=== PATIENT | male | born 1955 | race Caucasian/White ===

== ENCOUNTER 2016-03-30 18:59 | Emergency (ER) | payer OTHER ==
[~2016-03-30 18:59] MED LIST: COZAAR25 MG PO; COZAAR50 MG PO; FLONASE AL50 MCG/ACT; HYCET1 ML PO; HYDROCHLOROTHIA25 MG PO; LIPITOR20 MG PO; LYRICA100 MG PO; PREVACID30 MG PO; TRAZODONE HCL50 MG PO; WELLBUTRIN SR150 MG PO; ZYRTEC ALLERGY10 MG PO
--- NOTE | 2016-03-30 21:56 | DIAGNOSTIC IMAGING REPORT ---
PROCEDURE: CT HEAD WITHOUT CONTRAST INDICATION: TRAUMA/INJURY TECHNIQUE: Noncontrast axial images with sagittal and coronal reformations. COMPARISON: None. FINDINGS: There is moderate soft tissue injury and hematoma over the left parietal scalp. No evidence of skull fracture. Intracranially, there is a large 4.5 cm arachnoid cyst in the left posterior fossa (versus a normal variant enlarged cisterna magna). Brain and ventricles are otherwise normal. No evidence of an acute process or hemorrhage. Sinuses and mastoids are normal. IMPRESSION: 1. Moderate soft tissue injury and hematoma over the left parietal scalp. 2. There is a large 4.5 cm arachnoid cyst in the posterior fossa (versus normal variant enlarged cisterna magna). 3. Otherwise negative head CT. No evidence of acute process. 4. Findings discussed with Dr. Adams. All CT scans at this facility use dose modulation, iterative reconstruction, and/or weight-based dosing when appropriate to reduce radiation dose to as low as reasonably achievable.
--- NOTE | 2016-03-30 22:03 | DIAGNOSTIC IMAGING REPORT ---
PROCEDURE: CT CERVICAL SPINE W/O CONTRAST INDICATION: TRAUMA/INJURY TECHNIQUE: Noncontrast axial images with sagittal and coronal reformations. COMPARISON: None. FINDINGS: There are moderate to marked degenerative changes of the mid and upper cervical facet joints (left greater right), with reversal of the upper cervical lordosis. The rest of the osseous structures and disc spaces are normal. No evidence of an acute process or fracture. IMPRESSION: 1. Moderate to marked degenerative changes of the mid and upper cervical facet joints with reversal of the upper cervical lordosis. 2. Otherwise negative CT cervical spine. No evidence of an acute process or fracture. 3. Report alert called to the emergency department for Dr. Adams. All CT scans at this facility use dose modulation, iterative reconstruction, and/or weight-based dosing when appropriate to reduce radiation dose to as low as reasonably achievable.
--- NOTE | 2016-03-30 22:26 | ED CLINICAL REPORT ---
Clinical Report - Physicians/Mid Levels [facility] [address] [place] [address] 03/30/2016 19:00 [id number] Time Seen: 21:15 Mar 30 2016. Arrived- By private vehicle. Historian- patient. CPT: ER phys charges level 4 (#[id number]). HISTORY OF PRESENT ILLNESS Chief Complaint: INJURY TO HEAD. Location of injuries- head. The injury occurred just prior to arrival. The patient sustained a blow. Fell. Occurred at home. ( Location of injuries: head. This occurred (1 hours ago). Occurred at home.). The patient complains of moderate pain. The patient sustained a blow to the head. REVIEW OF SYSTEMS No numbness, hearing loss, weakness, loss of vision or difficulty breathing. No bladder dysfunction, laceration or fever. He has had mild nausea. Chronic peripheral neuropathy due to DM. All systems otherwise negative, except as recorded above. PAST HISTORY Hypertension. Hypercholesterolemia. Gastroesophageal Reflux Disease. --19:53 Kaleb Winters RColeman. ADDITIONAL SURGERIES: ABD surgery . Leg surgery . Shoulder Surgery. Medications: TraZODone HCl Oral 50 mg, daily. Atorvastatin Calcium Oral 20 mg, daily. BusPIRone HCl Oral 150mg, daily. Lansoprazole Oral 30 mg, daily. Hydrochlorothiazide Oral 25 mg, daily. Allergies: No Known Drug Allergy. SOCIAL HISTORY Former smoker. Alcohol use. No drug use. ADDITIONAL NOTES The nursing notes have been reviewed. PHYSICAL EXAM Vital Signs: 03/30/2016 19:49 BP: 145/95. HR: 82. RR: 16. O2 saturation: 96%. Temp: 97.8 F. Pain level now: 9/10. Appearance: Alert. No acute distress. Head: Vertex: moderate tenderness and swelling of the anterior aspect of the vertex. No ecchymosis or deformity. Eyes: Pupils equal, round and reactive to light. EOM intact. ENT: No dental injury. Pharynx normal. Neck: Painless ROM. Moderate vertebral tenderness of the upper cervical spine. CVS: Heart sounds normal. Pulses normal. Respiratory: Breath sounds normal. Chest nontender. Abdomen: Soft and nontender. Back: No tenderness. ROM normal. Skin: Skin intact. Skin warm. Normal skin color. Extremities: Normal inspection. Pelvis stable. Extremities atraumatic. Neuro: Oriented X 3. Mood/affect normal. Speech normal. No motor deficit. Normal gait. No sensory deficit. Reflexes normal. LABS, X-RAYS, AND EKG CT C-Spine: No acute disease. CT Head: No acute disease. PROGRESS AND PROCEDURES Patient/family counseled. Disposition: Discharged. Condition: stable. CLINICAL IMPRESSION Concussion. Unknown whether a loss of consciousness occurred. Single contusion with soft tissue hematoma to the scalp and posterior neck. Fall on same level by slipping. INSTRUCTIONS Apply ice for 15-20 minutes three times a day for one days followed by moist heat 15-20 minutes three times a day for three days until better. Do not work tomorrow, for two days until better. Warnings: HEAD INJURY PRECAUTIONS: An observer must check on the patient every 4 hours for the next 24 hours to confirm that the patient responds as expected, is not confused, has no new weakness or numbness, and has no other problems. GENERAL WARNINGS: Return or contact your physician immediately if your condition worsens or changes unexpectedly, if not improving as expected, or if other problems arise. Your Current Medications: CONTINUE TAKING THE FOLLOWING MEDICATIONS: Atorvastatin Calcium Oral : 20 mg daily. BusPIRone HCl Oral : 150mg daily. Hydrochlorothiazide Oral : 25 mg daily. Lansoprazole Oral : 30 mg daily. TraZODone HCl Oral : 50 mg daily. Prescription Medications: Zofran (orally disintegrating tablets) 4 mg: take 1 orally every 6 hours as needed for nausea. Dispense ten (10). No refill. Substitution is permissible. Oxycodone/APAP 5 mg/325 mg: take 1-2 tablets orally every 4 hours as needed for pain. Dispense twenty (20). No refill. Follow-up: Follow up with your doctor in one week if not well. Call for an appointment. Understanding of the discharge instructions verbalized by patient. Discharge instructions reviewed with and understanding was verbalized by spouse. (Electronically signed by Mainor Adams MD 04/01/2016 21:05)
--- NOTE | 2016-03-30 22:26 | ED NURSING NOTES ---
Clinical Report - Nurses [place] [address] [place] [address] 03/30/2016 19:00 Patient: LIVIA SAINI TRIAGE Triage time 19:50. Acuity: LEVEL 3. Chief Complaint: FALL (fell down 2 stairs). 19:59. Alert. SEPSIS SCREEN: Sepsis Screen. Negative (no infection suspected/documented). LUKAS COMA SCORE: [place] Coma Scale: 15- eyes open spontaneously (4); best verbal response- oriented x 4 (5); best motor response- obeys commands (6). --20:00 Kaleb Winters R.N. 19:49 03/30/16. BP: 145/95. HR: 82. RR: 16. O2 saturation: 96% on room air. Temp: 97.8 F (oral). Pain level now: 12/02. --20:00 Kaleb Winters R.N. Weight: 124.7 kg stated. Height/Length: 73 inches Per Patient. BMI: 36.3. --19:51 Kaleb Winters R.N. Medications Hydrochlorothiazide Oral 25 mg, daily. --19:57 Kaleb Winters R.N. Lansoprazole Oral 30 mg, daily. --19:57 Kaleb Winters R.N. BusPIRone HCl Oral 150mg, daily. --19:57 Kaleb Winters R.N. Atorvastatin Calcium Oral 20 mg, daily. --19:58 Kaleb Winters R.N. TraZODone HCl Oral 50 mg, daily. --19:58 Kaleb Winters R.N. Medication/allergy information source: the patient. --20:00 Kaleb Winters R.N. Allergies No Known Drug Allergy. --19:59 Kaleb Winters R.N. History Arrived by private vehicle. Historian: patient. Accompanied by family. Primary physician (Arturo). Location of injuries: head. This occurred (1 hours ago). Occurred at home. 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 Trauma activation: Pre-hospital notification of patient arrival was not received. PAST MEDICAL HX: Tetanus status: up-to-date. Immunizations: up-to-date. SOCIAL HX: Former smoker, end date 1986. Regular alcohol use; consumes two liquor daily. No drug use. No infectious disease exposure. ABUSE ASSESSMENT: No report of abuse. FALL RISK ASSESSMENT: Fall risk assessment completed. No fall risk identified. NUTRITIONAL RISK ASSESSMENT: The nutritional risk assessment revealed no deficiencies. FUNCTIONAL ASSESSMENT: Functional assessment: no impairments noted. LEARNING NEEDS ASSESSMENT: The learning needs assessment revealed no barriers. SKIN INTEGRITY ASSESSMENT: Skin integrity risk assessment completed. No skin integrity risk identified. --20:00 Kaleb Winters R.N. PROBLEMS: Hypertension. Hypercholesterolemia. Gastroesophageal Reflux Disease. --19:53 Kaleb Winters R.N. ADDITIONAL SURGERIES: ABD surgery . Leg surgery . Shoulder Surgery. --19:53 Kaleb Winters R.N. Interventions ID band on patient. --20:00 Kaleb Winters R.N. PHYSICAL ASSESSMENT 21:17 03/30/16. GENERAL / NEURO / PSYCH: Alert. Oriented X 4. Appears in no acute distress. HEENT: Pupils equal, round and reactive to light. Head: tenderness and swelling present (crown). Head non-tender. RESPIRATORY: Respirations not labored. Breath sounds within normal limits. CVS: Pulses within normal limits. EXTREMITIES: Extremities exhibit normal ROM. Neuro-vascular status intact to the extremity. SKIN: Skin intact. Skin is warm and dry. --21:17 Chayito Osuna R.N. NURSING PROGRESS NOTES 21:03/30/16. Cold pack applied (declined). Patient gowned. Call light placed in reach. Side rails up x 1. Bed placed in lowest position. Brakes of bed on. Patient ready for evaluation. ( Patient brought to room 10, undressed and ready for exam). --21:17 Chayito Osuna R.N. 21:03/30/16. BP: 151/95. HR: 88. RR: 16. O2 saturation: 100%. Pain level now 6/10. --21:17 Chayito Osuna R.N. Cold pack applied (to head). --22:29 Mega Paris, ER Line Supervisor. DISPOSITION / DISCHARGE 22:46 03/30/16. Condition at departure: improved and stable. The goals identified in the patient's plan of care were met. No learning barriers present. Discharge instructions provided and reviewed with the patient and spouse. Reviewed medication(s) side effects, precautions, dosing and course information. Prescription(s) given to the patient. Reviewed referral to a primary care physician for followup. Patient and spouse verbalized understanding. Written instructions provided in [place]. The patient was discharged home and accompanied by spouse. He left the Emergency Department ambulatory and via private vehicle. Spouse driving. FALL RISK ASSESSMENT: Fall risk assessment completed. No fall risk identified. --22:46 Chayito Osuna R.N. 21:16 03/30/16. BP: 151/95. HR: 88. RR: 16. O2 saturation: 100%. Pain level now 6/10. --22:46 Chayito Osuna R.N. Departure time: 22:46 Mar 30 2016. --22:46 Chayito Osuna R.N. Locked/Released at 03/30/2016 22:46 by Chayito Osuna R.N.
--- NOTE | 2016-03-30 22:26 | ED ORDER SUMMARY ---
..... Patient: LIVIA SAINI [facility] VisitID: [id number] [place] [address] 60y, M Registration Date/Time: 03/30/2016 ORDER SHEET Weight: 124.7 kg (stated) Allergies: No Known Drug Allergy GENERAL ORDERS: CT Head wo Cont Urgent (21:23 03/30/2016 Lyly JOHNSON) (Ack 21:28 LTapper) (21:52 MCampbell) CT Cervical Spine wo Cont Urgent (21:24 03/30/2016 Lyly JOHNSON) (Ack 21:28 LTapper) (21:52 MCampbell) Ice (22:26 03/30/2016 Lyly JOHNSON) (22:29 [facility] ER Public Services Librarian) MEDICATION ORDERS: IV FLUIDS: ORDER SHEET NOTES: [Electronically signed by Chayito Osuna R.N. (22:46 03/30/2016)] [Electronically signed by Mainor Adams MD (21:05 04/01/2016)] [Electronically locked/signed by Chayito Osuna R.N. (22:46 03/30/2016)]
--- NOTE | 2016-03-30 22:26 | ED ORDER SUMMARY ---
..... Patient: LIVIA SAINI OrderSheet [facility] VisitID: [id number] [place] [address] 60y, M Registration Date/Time: 03/30/2016 ORDER SHEET Weight: 124.7 kg (stated) Allergies: No Known Drug Allergy GENERAL ORDERS: CT Head wo Cont Urgent (21:23 03/30/2016 Lyly JOHNSON) (Ack 21:28 LTapper) (21:52 MCampbell) CT Cervical Spine wo Cont Urgent (21:24 03/30/2016 Lyly JOHNSON) (Ack 21:28 LTapper) (21:52 MCampbell) Ice (22:26 03/30/2016 Lyly JOHNSON) (22:29 [facility] ER Clinical Education Specialist) MEDICATION ORDERS: IV FLUIDS: ORDER SHEET NOTES: [Electronically signed by Chayito Osuna R.N. (22:46 03/30/2016)] [Electronically signed by Mainor Adams MD (21:05 04/01/2016)] [Electronically locked/signed by Chayito Osuna R.N. (22:46 03/30/2016)]
--- NOTE | 2016-03-30 22:26 | ED CLINICAL REPORT ---
Clinical Report - Physicians/Mid Levels [facility] [address] [place] [address] 03/30/2016 19:00 [facility]: [facility]INI [id number] Time Seen: 21:15 Mar 30 2016. Arrived- By private vehicle. Historian- patient. CPT: ER phys charges level 4 (#[id number]). HISTORY OF PRESENT ILLNESS Chief Complaint: INJURY TO HEAD. Location of injuries- head. The injury occurred just prior to arrival. The patient sustained a blow. Fell. Occurred at home. ( Location of injuries: head. This occurred (1 hours ago). Occurred at home.). The patient complains of moderate pain. The patient sustained a blow to the head. REVIEW OF SYSTEMS No numbness, hearing loss, weakness, loss of vision or difficulty breathing. No bladder dysfunction, laceration or fever. He has had mild nausea. Chronic peripheral neuropathy due to DM. All systems otherwise negative, except as recorded above. PAST HISTORY Hypertension. Hypercholesterolemia. Gastroesophageal Reflux Disease. --19:53 Kaleb Winters RColeman. ADDITIONAL SURGERIES: ABD surgery . Leg surgery . Shoulder Surgery. Medications: TraZODone HCl Oral 50 mg, daily. Atorvastatin Calcium Oral 20 mg, daily. BusPIRone HCl Oral 150mg, daily. Lansoprazole Oral 30 mg, daily. Hydrochlorothiazide Oral 25 mg, daily. Allergies: No Known Drug Allergy. SOCIAL HISTORY Former smoker. Alcohol use. No drug use. ADDITIONAL NOTES The nursing notes have been reviewed. PHYSICAL EXAM Vital Signs: 03/30/2016 19:49 BP: 145/95. HR: 82. RR: 16. O2 saturation: 96%. Temp: 97.8 F. Pain level now: 9/10. Appearance: Alert. No acute distress. Head: Vertex: moderate tenderness and swelling of the anterior aspect of the vertex. No ecchymosis or deformity. Eyes: Pupils equal, round and reactive to light. EOM intact. ENT: No dental injury. Pharynx normal. Neck: Painless ROM. Moderate vertebral tenderness of the upper cervical spine. CVS: Heart sounds normal. Pulses normal. Respiratory: Breath sounds normal. Chest nontender. Abdomen: Soft and nontender. Back: No tenderness. ROM normal. Skin: Skin intact. Skin warm. Normal skin color. Extremities: Normal inspection. Pelvis stable. Extremities atraumatic. Neuro: Oriented X 3. Mood/affect normal. Speech normal. No motor deficit. Normal gait. No sensory deficit. Reflexes normal. LABS, X-RAYS, AND EKG CT C-Spine: No acute disease. CT Head: No acute disease. PROGRESS AND PROCEDURES Patient/family counseled. Disposition: Discharged. Condition: stable. CLINICAL IMPRESSION Concussion. Unknown whether a loss of consciousness occurred. Single contusion with soft tissue hematoma to the scalp and posterior neck. Fall on same level by slipping. INSTRUCTIONS Apply ice for 15-20 minutes three times a day for one days followed by moist heat 15-20 minutes three times a day for three days until better. Do not work tomorrow, for two days until better. Warnings: HEAD INJURY PRECAUTIONS: An observer must check on the patient every 4 hours for the next 24 hours to confirm that the patient responds as expected, is not confused, has no new weakness or numbness, and has no other problems. GENERAL WARNINGS: Return or contact your physician immediately if your condition worsens or changes unexpectedly, if not improving as expected, or if other problems arise. Your Current Medications: CONTINUE TAKING THE FOLLOWING MEDICATIONS: Atorvastatin Calcium Oral : 20 mg daily. BusPIRone HCl Oral : 150mg daily. Hydrochlorothiazide Oral : 25 mg daily. Lansoprazole Oral : 30 mg daily. TraZODone HCl Oral : 50 mg daily. Prescription Medications: Zofran (orally disintegrating tablets) 4 mg: take 1 orally every 6 hours as needed for nausea. Dispense ten (10). No refill. Substitution is permissible. Oxycodone/APAP 5 mg/325 mg: take 1-2 tablets orally every 4 hours as needed for pain. Dispense twenty (20). No refill. Follow-up: Follow up with your doctor in one week if not well. Call for an appointment. Understanding of the discharge instructions verbalized by patient. Discharge instructions reviewed with and understanding was verbalized by spouse. (Electronically signed by Mainor Adams MD 04/01/2016 21:05)
--- NOTE | 2016-03-30 22:26 | ED NURSING NOTES ---
Clinical Report - Nurses [place] [place] [address] 03/30/2016 19:00 Patient: LIVIA SAINI TRIAGE Triage time 19:50. Acuity: LEVEL 3. Chief Complaint: FALL (fell down 2 stairs). 19:59. Alert. SEPSIS SCREEN: Sepsis Screen. Negative (no infection suspected/documented). LUKAS COMA SCORE: [place] Coma Scale: 15- eyes open spontaneously (4); best verbal response- oriented x 4 (5); best motor response- obeys commands (6). --20:00 Kaleb Winters R.N. 19:49 03/30/16. BP: 145/95. HR: 82. RR: 16. O2 saturation: 96% on room air. Temp: 97.8 F (oral). Pain level now: 12/02. --20:00 Kaleb Winters R.N. Weight: 124.7 kg stated. Height/Length: 73 inches Per Patient. BMI: 36.3. --19:51 Kaleb Winters R.N. Medications Hydrochlorothiazide Oral 25 mg, daily. --19:57 Kaleb Winters R.N. Lansoprazole Oral 30 mg, daily. --19:57 Kaleb Winters R.N. BusPIRone HCl Oral 150mg, daily. --19:57 Kaleb Winters R.N. Atorvastatin Calcium Oral 20 mg, daily. --19:58 Kaleb Winters R.N. TraZODone HCl Oral 50 mg, daily. --19:58 Kaleb Winters R.N. Medication/allergy information source: the patient. --20:00 Kaleb Winters R.N. Allergies No Known Drug Allergy. --19:59 Kaleb Winters R.N. History Arrived by private vehicle. Historian: patient. Accompanied by family. Primary physician (Arturo). Location of injuries: head. This occurred (1 hours ago). Occurred at home. 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 Trauma activation: Pre-hospital notification of patient arrival was not received. PAST MEDICAL HX: Tetanus status: up-to-date. Immunizations: up-to-date. SOCIAL HX: Former smoker, end date 1986. Regular alcohol use; consumes two liquor daily. No drug use. No infectious disease exposure. ABUSE ASSESSMENT: No report of abuse. FALL RISK ASSESSMENT: Fall risk assessment completed. No fall risk identified. NUTRITIONAL RISK ASSESSMENT: The nutritional risk assessment revealed no deficiencies. FUNCTIONAL ASSESSMENT: Functional assessment: no impairments noted. LEARNING NEEDS ASSESSMENT: The learning needs assessment revealed no barriers. SKIN INTEGRITY ASSESSMENT: Skin integrity risk assessment completed. No skin integrity risk identified. --20:00 Kaleb Winters R.N. PROBLEMS: Hypertension. Hypercholesterolemia. Gastroesophageal Reflux Disease. --19:53 Kaleb Winters R.N. ADDITIONAL SURGERIES: ABD surgery . Leg surgery . Shoulder Surgery. --19:53 Kaleb Winters R.N. Interventions ID band on patient. --20:00 Kaleb Winters R.N. PHYSICAL ASSESSMENT 21:17 03/30/16. GENERAL / NEURO / PSYCH: Alert. Oriented X 4. Appears in no acute distress. HEENT: Pupils equal, round and reactive to light. Head: tenderness and swelling present (crown). Head non-tender. RESPIRATORY: Respirations not labored. Breath sounds within normal limits. CVS: Pulses within normal limits. EXTREMITIES: Extremities exhibit normal ROM. Neuro-vascular status intact to the extremity. SKIN: Skin intact. Skin is warm and dry. --21:17 Chayito Osuna R.N. NURSING PROGRESS NOTES 21:03/30/16. Cold pack applied (declined). Patient gowned. Call light placed in reach. Side rails up x 1. Bed placed in lowest position. Brakes of bed on. Patient ready for evaluation. ( Patient brought to room 10, undressed and ready for exam). --21:17 Chayito Osuna R.N. 21:03/30/16. BP: 151/95. HR: 88. RR: 16. O2 saturation: 100%. Pain level now 6/10. --21:17 Chayito Osuna R.N. Cold pack applied (to head). --22:29 Mega Paris, ER Orchestra Conductor. DISPOSITION / DISCHARGE 22:46 03/30/16. Condition at departure: improved and stable. The goals identified in the patient's plan of care were met. No learning barriers present. Discharge instructions provided and reviewed with the patient and spouse. Reviewed medication(s) side effects, precautions, dosing and course information. Prescription(s) given to the patient. Reviewed referral to a primary care physician for followup. Patient and spouse verbalized understanding. Written instructions provided in [place]. The patient was discharged home and accompanied by spouse. He left the Emergency Department ambulatory and via private vehicle. Spouse driving. FALL RISK ASSESSMENT: Fall risk assessment completed. No fall risk identified. --22:46 Chayito Osuna R.N. 21:16 03/30/16. BP: 151/95. HR: 88. RR: 16. O2 saturation: 100%. Pain level now 6/10. --22:46 Chayito Osuna R.N. Departure time: 22:46 Mar 30 2016. --22:46 Chayito Osuna R.N. Locked/Released at 03/30/2016 22:46 by Chayito Osuna R.N.
--- NOTE | 2016-04-01 21:05 | ED MED RECONCILIATION SUMMARY ---
Patient: LIVIA SAINI Medication Reconciliation Report [facility] VisitID: [id number] [place] [address] 60y, M Registration Date/Time: 03/30/2016 Weight: 124.7 kg Height/Length: 73 in. BMI: 36.3 ALLERGIES: No Known Drug Allergy The patient's Home Medications are listed below: CONTINUE TAKING THE FOLLOWING MEDICATIONS: Atorvastatin Calcium Oral 20 mg, daily BusPIRone HCl Oral 150mg, daily Hydrochlorothiazide Oral 25 mg, daily Lansoprazole Oral 30 mg, daily TraZODone HCl Oral 50 mg, daily The source(s) of the original Home Medication information: patient The following Medications were given to the patient in the Emergency Department: None. The following Medications were prescribed to the patient: Zofran (orally disintegrating tablets) 4 mg: take 1 orally every 6 hours as needed for nausea. Dispense ten (10). No refill. Substitution is permissible. -- Mainor Adams MD Oxycodone/APAP 5 mg/325 mg: take 1-2 tablets orally every 4 hours as needed for pain. Dispense twenty (20). No refill. -- Mainor Adams MD
--- NOTE | 2016-04-01 21:05 | ED DISCHARGE INSTRUCTIONS ---
Patient: LIVIA SAINI General Instructions [facility] VisitID: [id number] [place] [address] 60y, M Registration Date/Time: 03/30/2016 Concussion. Unknown whether a loss of consciousness occurred. Single contusion with soft tissue hematoma to the scalp and posterior neck. Fall on same level by slipping. INSTRUCTIONS Apply ice for 15-20 minutes three times a day for one days followed by moist heat 15-20 minutes three times a day for three days until better. Do not work tomorrow, for two days until better. Warnings: HEAD INJURY PRECAUTIONS: An observer must check on the patient every 4 hours for the next 24 hours to confirm that the patient responds as expected, is not confused, has no new weakness or numbness, and has no other problems. GENERAL WARNINGS: Return or contact your physician immediately if your condition worsens or changes unexpectedly, if not improving as expected, or if other problems arise. Your Current Medications: CONTINUE TAKING THE FOLLOWING MEDICATIONS: Atorvastatin Calcium Oral : 20 mg daily. BusPIRone HCl Oral : 150mg daily. Hydrochlorothiazide Oral : 25 mg daily. Lansoprazole Oral : 30 mg daily. TraZODone HCl Oral : 50 mg daily. Prescription Medications: Zofran (orally disintegrating tablets) 4 mg: take 1 orally every 6 hours as needed for nausea. Dispense ten (10). No refill. Substitution is permissible. Oxycodone/APAP 5 mg/325 mg: take 1-2 tablets orally every 4 hours as needed for pain. Dispense twenty (20). No refill. Follow-up: Follow up with your doctor in one week if not well. Call for an appointment. Understanding of the discharge instructions verbalized by patient. Discharge instructions reviewed with and understanding was verbalized by spouse. ADDITIONAL INFORMATION Mechanical Fall You have had a fall today. It appears that the cause is mechanical. That means that you slipped, tripped or lost your balance. If your fall had been due to fainting or a seizure, further tests would be required. Home Care: Rest today and resume your normal activities when you are feeling back to normal. If you were injured during the fall, follow the advice from your doctor regarding care of your injury. You may use acetaminophen (Tylenol) or ibuprofen (Motrin, Advil) to control pain, unless another pain medicine was prescribed. [NOTE: If you have chronic liver or kidney disease or ever had a stomach ulcer or GI bleeding, talk with your doctor before using these medicines.] Fall Prevention: Was there anything that caused your fall that can be fixed, removed, or replaced? Make your home safe by keeping walkways clear of objects you may trip over. Use non-slip pads under rugs. Do not walk in poorly lit areas. Do not stand on chairs or wobbly ladders. Use caution when reaching overhead or looking upward. This position can cause a loss of balance. Be sure your shoes fit properly, have non-slip bottoms and are in good condition. Be cautious when going up and down curbs, and walking on uneven sidewalks. If your balance is poor, consider using a cane or walker. Stay as active as you can. Balance, flexibility, strength, and endurance all come from exercise. They all play a role in preventing falls. Follow Up with your doctor or as advised by our staff. Get Prompt Medical Attention if any of the following occur: Repeated mechanical falls, or unexplained falls Dizziness, fainting or seizure Severe headache Chest pain or shortness of breath Palpitations (very rapid or very slow or irregular heartbeat) Blood in vomit, stools (black or red color) Weakness of an arm or leg or one side of the face Difficulty with speech or vision Contusion,Soft Tissue You have a CONTUSION, which is a bruise with swelling and some bleeding under the skin. There are no broken bones. This injury takes a few days to a few weeks to heal. Home Care: 1) Keep the injured part elevated to reduce pain and swelling. This is especially important during the first 48 hours. 2) Make an ice pack (ice cubes in a plastic bag, wrapped in a towel) and apply for 20 minutes every 1-2 hours the first day. Continue this 3-4 times a day until the pain and swelling goes away. 3) You may use acetaminophen (Tylenol) or ibuprofen (Motrin, Advil) to control pain, unless another pain medicine was prescribed. [ NOTE : If you have chronic liver or kidney disease or ever had a stomach ulcer or GI bleeding, talk with your doctor before using these medicines.] Follow Up with your doctor or this facility if you are not improving within the next THREE days. [NOTE: If X-rays were taken, they will be reviewed by a radiologist. You will be notified of any new findings that may affect your care.] Get Prompt Medical Attention if any of the following occur: -- Pain or swelling increases -- Injured arm or leg becomes cold, blue, numb or tingly -- Redness, warmth or drainage from the skin Scalp Contusion [No Wake-Up] A scalp contusion is a bruise with swelling and sometimes bleeding under the skin. The swelling should start to go down within two days. Although there is no sign of a serious injury at this time, symptoms may appear later. These could be a sign of a more serious problem (bruising or bleeding in the brain). Therefore, watch for the warning signs below. Home Care: During the next 24 hours someone must stay with you to check for the signs below. It is not necessary to stay awake or be awakened during the night. If you have swelling of the face or scalp, apply an ice pack (ice cubes in a plastic bag, wrapped in a towel) for 20 minutes. Do this every 1-2 hours until the swelling starts to go down. You may use acetaminophen (Tylenol) or ibuprofen (Motrin, Advil) to control pain, unless another pain medicine was prescribed. [ NOTE : If you have chronic liver or kidney disease or ever had a stomach ulcer or GI bleeding, talk with your doctor before using these medicines.] For the next 24 hours: Do not take alcohol, sedatives or medicines that make you sleepy. Do not drive or operate machinery. Avoid strenuous activities. No lifting or straining. If you have had any symptoms of a concussion today (nausea, vomiting, dizziness, confusion, headache, memory loss or if you were knocked out), do not return to sports or any activity that could result in another head injury until all symptoms are gone and you have been cleared by your doctor. A second head injury before fully recovering from the first one can lead to serious brain injury. Follow Up with your doctor if symptoms are not improving after 24 hours, or as directed. [NOTE: Any X-rays or CT scans taken will be reviewed by a radiologist. You will be notified of any new findings that may affect your care.] Get Prompt Medical Attention if any of the following occur: Repeated vomiting Severe or worsening headache or dizziness Unusual drowsiness, or unable to awaken as usual Confusion or change in behavior or speech, memory loss, blurred vision Convulsion (seizure) Increasing scalp or face swelling Redness, warmth or pus from the swollen area Fluid drainage or bleeding from the nose or ears Fever of 100.4F(38C) or higher, or as directed by your healthcare provider Head Injury, No Wake-Up (Adult) You have had a head injury. It does not appear serious at this time. Symptoms of a more serious problem (concussion, bruising, or bleeding in the brain) may appear later. Therefore, watch for the WARNING SIGNS listed below. Home Care: Your healthcare provider will tell you whether its okay to drive. If so, you can drive yourself home. For the next day or so, be careful when driving or using heavy machinery until you are sure you have no delayed symptoms. During the next 24 hours someone must stay with you to check for the signs below. It is not necessary to stay awake or be awakened during the night. If you have swelling of the face or scalp, apply an ice pack (ice cubes in a plastic bag, wrapped in a towel) for 20 minutes. Do this every 1-2 hours until the swelling starts to go down. Do not use aspirin or ibuprofen (Motrin, Advil) after a head injury.You may use acetaminophen (Tylenol)to control pain, unless another pain medicine was prescribed. [NOTE: If you have chronic liver or kidney disease or ever had a stomach ulcer or GI bleeding, talk with your doctor before using these medicines.] For the next 24 hours: Do not take alcohol, sedatives or medicines that make you sleepy. Avoid strenuous activities. No lifting or straining. If you have had any symptoms of a concussion today (nausea, vomiting, dizziness, confusion, headache, memory loss or if you were knocked out), do not return to sports or any activity that could result in another head injury until all symptoms are gone and you have been cleared by your doctor. A second head injury before fully recovering from the first one can lead to serious brain injury. Follow Up with your doctor if symptoms are not improving after 24 hours, or as directed. [NOTE: A radiologist will review any X-rays or CT scans that were taken. We will notify you of any new findings that may affect your care.] Get Prompt Medical Attention if any of the followingWARNING SIGNS occur: Repeated vomiting Severe or worsening headache or dizziness Unusual drowsiness, or unable to awaken as usual Confusion or change in behavior or speech, memory loss, blurred vision Convulsion (seizure) Increasing scalp or face swelling Redness, warmth or pus from the swollen area Fluid drainage or bleeding from the nose or ears Head Injury, No Wake-Up (Adult) You have had a head injury. It does not appear serious at this time. Symptoms of a more serious problem (concussion, bruising, or bleeding in the brain) may appear later. Therefore, watch for the WARNING SIGNS listed below. Home Care: Your healthcare provider will tell you whether its okay to drive. If so, you can drive yourself home. For the next day or so, be careful when driving or using heavy machinery until you are sure you have no delayed symptoms. During the next 24 hours someone must stay with you to check for the signs below. It is not necessary to stay awake or be awakened during the night. If you have swelling of the face or scalp, apply an ice pack (ice cubes in a plastic bag, wrapped in a towel) for 20 minutes. Do this every 1-2 hours until the swelling starts to go down. Do not use aspirin or ibuprofen (Motrin, Advil) after a head injury.You may use acetaminophen (Tylenol)to control pain, unless another pain medicine was prescribed. [NOTE: If you have chronic liver or kidney disease or ever had a stomach ulcer or GI bleeding, talk with your doctor before using these medicines.] For the next 24 hours: Do not take alcohol, sedatives or medicines that make you sleepy. Avoid strenuous activities. No lifting or straining. If you have had any symptoms of a concussion today (nausea, vomiting, dizziness, confusion, headache, memory loss or if you were knocked out), do not return to sports or any activity that could result in another head injury until all symptoms are gone and you have been cleared by your doctor. A second head injury before fully recovering from the first one can lead to serious brain injury. Follow Up with your doctor if symptoms are not improving after 24 hours, or as directed. [NOTE: A radiologist will review any X-rays or CT scans that were taken. We will notify you of any new findings that may affect your care.] Get Prompt Medical Attention if any of the followingWARNING SIGNS occur: Repeated vomiting Severe or worsening headache or dizziness Unusual drowsiness, or unable to awaken as usual Confusion or change in behavior or speech, memory loss, blurred vision Convulsion (seizure) Increasing scalp or face swelling Redness, warmth or pus from the swollen area Fluid drainage or bleeding from the nose or ears Ondansetron Oral disintegrating tablet What is this medicine? ONDANSETRON (on FRANCESCO se kamaljit) is used to treat nausea and vomiting caused by chemotherapy. It is also used to prevent or treat nausea and vomiting after surgery. How should I use this medicine? These tablets are made to dissolve in the mouth. Do not try to push the tablet through the foil backing. With dry hands, peel away the foil backing and gently remove the tablet. Place the tablet in the mouth and allow it to dissolve, then swallow. While you may take these tablets with water, it is not necessary to do so. Talk to your fountain pen turner regarding the use of this medicine in children. Special care may be needed. What side effects may I notice from receiving this medicine? Side effects that you should report to your doctor or health career resource technician as soon as possible: allergic reactions like skin rash, itching or hives, swelling of the face, lips, or tongue breathing problems dizziness fast or irregular heartbeat feeling faint or lightheaded, falls fever and chills swelling of the hands and feet tightness in the chest Side effects that usually do not require medical attention (report to your doctor or health career resource technician if they continue or are bothersome): constipation or diarrhea headache What may interact with this medicine? Do not take this medicine with any of the following medications: -apomorphine -cisapride -dofetilide -dronedarone -pimozide -thioridazine -ziprasidone This medicine may also interact with the following medications: -carbamazepine -phenytoin -rifampicin -tramadol -other medicines that prolong the QT interval (cause an abnormal heart rhythm) What if I miss a dose? If you miss a dose, take it as soon as you can. If it is almost time for your next dose, take only that dose. Do not take double or extra doses. Where should I keep my medicine? Keep out of the reach of children. Store between 2 and 30 degrees C (36 and 86 degrees F). Throw away any unused medicine after the expiration date. What should I tell my health care provider before I take this medicine? They need to know if you have any of these conditions: heart disease history of irregular heartbeat liver disease low levels of magnesium or potassium in the blood an unusual or allergic reaction to ondansetron, granisetron, other medicines, foods, dyes, or preservatives or trying to get breast-feeding What should I watch for while using this medicine? Check with your doctor or health career resource technician as soon as you can if you have any sign of an allergic reaction. Oxycodone Hydrochloride, Acetaminophen Oral tablet What is this medicine? ACETAMINOPHEN; OXYCODONE (a set a TUSHAR jaime fen; ox i KOE done) is a pain reliever. It is used to treat mild to moderate pain. How should I use this medicine? Take this medicine by mouth with a full glass of water. Follow the directions on the prescription label. Take your medicine at regular intervals. Do not take your medicine more often than directed. Talk to your fountain pen turner regarding the use of this medicine in children. Special care may be needed. Patients over 65 years old may have a stronger reaction and need a smaller dose. What side effects may I notice from receiving this medicine? Side effects that you should report to your doctor or health career resource technician as soon as possible: allergic reactions like skin rash, itching or hives, swelling of the face, lips, or tongue breathing difficulties, wheezing confusion light headedness or fainting spells severe stomach pain yellowing of the skin or the whites of the eyes Side effects that usually do not require medical attention (report to your doctor or health career resource technician if they continue or are bothersome): dizziness drowsiness nausea vomiting What may interact with this medicine? alcohol antihistamines barbiturates like amobarbital, butalbital, butabarbital, methohexital, pentobarbital, phenobarbital, thiopental, and secobarbital benztropine drugs for bladder problems like solifenacin, trospium, oxybutynin, tolterodine, hyoscyamine, and methscopolamine drugs for breathing problems like ipratropium and tiotropium drugs for certain stomach or intestine problems like propantheline, homatropine methylbromide, glycopyrrolate, atropine, belladonna, and dicyclomine general anesthetics like etomidate, ketamine, nitrous oxide, propofol, desflurane, enflurane, halothane, isoflurane, and sevoflurane medicines for depression, anxiety, or psychotic disturbances medicines for sleep muscle relaxants naltrexone narcotic medicines (opiates) for pain phenothiazines like perphenazine, thioridazine, chlorpromazine, mesoridazine, fluphenazine, prochlorperazine, promazine, and trifluoperazine scopolamine tramadol trihexyphenidyl What if I miss a dose? If you miss a dose, take it as soon as you can. If it is almost time for your next dose, take only that dose. Do not take double or extra doses. Where should I keep my medicine? Keep out of the reach of children. This medicine can be abused. Keep your medicine in a safe place to protect it from theft. Do not share this medicine with anyone. Selling or giving away this medicine is dangerous and against the law. Store at room temperature between 20 and 25 degrees C (68 and 77 degrees F). Keep container tightly closed. Protect from light. This medicine may cause accidental overdose and if it is taken by other adults, children, or pets. Flush any unused medicine down the toilet to reduce the chance of harm. Do not use the medicine after the expiration date. What should I tell my health care provider before I take this medicine? They need to know if you have any of these conditions: brain tumor Crohn's disease, inflammatory bowel disease, or ulcerative colitis drink more than 3 alcohol containing drinks per day drug abuse or addiction head injury heart or circulation problems kidney disease or problems going to the bathroom liver disease lung disease, asthma, or breathing problems an unusual or allergic reaction to acetaminophen, oxycodone, other opioid analgesics, other medicines, foods, dyes, or preservatives or trying to get breast-feeding What should I watch for while using this medicine? Tell your doctor or health career resource technician if your pain does not go away, if it gets worse, or if you have new or a different type of pain. You may develop tolerance to the medicine. Tolerance means that you will need a higher dose of the medication for pain relief. Tolerance is normal and is expected if you take this medicine for a long time. Do not suddenly stop taking your medicine because you may develop a severe reaction. Your body becomes used to the medicine. This does NOT mean you are addicted. Addiction is a behavior related to getting and using a drug for a non-medical reason. If you have pain, you have a medical reason to take pain medicine. Your doctor will tell you how much medicine to take. If your doctor wants you to stop the medicine, the dose will be slowly lowered over time to avoid any side effects. You may get drowsy or dizzy. Do not drive, use machinery, or do anything that needs mental alertness until you know how this medicine affects you. Do not stand or sit up quickly, especially if you are an older patient. This reduces the risk of dizzy or fainting spells. Alcohol may interfere with the effect of this medicine. Avoid alcoholic drinks. There are different types of narcotic medicines (opiates) for pain. If you take more than one type at the same time, you may have more side effects. Give your health care provider a list of all medicines you use. Your doctor will tell you how much medicine to take. Do not take more medicine than directed. Call emergency for help if you have problems breathing. The medicine will cause constipation. Try to have a bowel movement at least every 2 to 3 days. If you do not have a bowel movement for 3 days, call your doctor or health career resource technician. Do not take Tylenol (acetaminophen) or medicines that have acetaminophen with this medicine. Too much acetaminophen can be very dangerous. Many nonprescription medicines contain acetaminophen. Always read the labels carefully to avoid taking more acetaminophen. You have been given the following additional information: Fall, Mechanical Contusion, Soft Tissue Scalp Contusion, No Wake Up HEAD INJURY, No Wake-Up (Adult) HEAD INJURY, No Wake-Up (Adult) Ondansetron Oral disintegrating tablet Oxycodone Hydrochloride, Acetaminophen Oral tablet Do not work tomorrow, for two days until better. (Electronically signed by Mainor Adams MD 04/01/2016 21:05)
--- NOTE | 2016-04-01 21:05 | ED MAR SUMMARY ---
..... Medication Administration Record [facility] [address] [place] [address] Patient: LIVIA SAINI Visit ID: [id number] 60y, M Weight: 124.7 kg Height/Length: 73 in BMI: 36.3 ALLERGIES: No Known Drug Allergy
--- NOTE | 2016-04-01 21:05 | ED MED RECONCILIATION SUMMARY ---
Patient: LIVIA SAINI Medication Reconciliation Report [facility] VisitID: [id number] [place] [address] 60y, M Registration Date/Time: 03/30/2016 Weight: 124.7 kg Height/Length: 73 in. BMI: 36.3 ALLERGIES: No Known Drug Allergy The patient's Home Medications are listed below: CONTINUE TAKING THE FOLLOWING MEDICATIONS: Atorvastatin Calcium Oral 20 mg, daily BusPIRone HCl Oral 150mg, daily Hydrochlorothiazide Oral 25 mg, daily Lansoprazole Oral 30 mg, daily TraZODone HCl Oral 50 mg, daily The source(s) of the original Home Medication information: patient The following Medications were given to the patient in the Emergency Department: None. The following Medications were prescribed to the patient: Zofran (orally disintegrating tablets) 4 mg: take 1 orally every 6 hours as needed for nausea. Dispense ten (10). No refill. Substitution is permissible. -- Mainor Adams MD Oxycodone/APAP 5 mg/325 mg: take 1-2 tablets orally every 4 hours as needed for pain. Dispense twenty (20). No refill. -- Mainor Adams MD
--- NOTE | 2016-04-01 21:05 | ED MAR SUMMARY ---
..... Medication Administration Record [facility] [address] [place] [address] Patient: LIVIA SAINI Visit ID: [id number] 60y, M Weight: 124.7 kg Height/Length: 73 in BMI: 36.3 ALLERGIES: No Known Drug Allergy
[2016-06-06] MEDS ORDERED: TRAMADOL HCL50 MG PO (15:44)
[2016-06-06] MEDS ORDERED: CIALIS2.5 MG (15:45)
== END 2016-03-30 22:46 | disposition home or self-care (01) ==
LOC: ED SRH 18:59
DX: S06.0X0A Concussion without loss of consciousness, initial encounter (principal); E78.00 Pure hypercholesterolemia, unspecified; S10.93XA Contusion of unspecified part of neck, initial encounter; S00.03XA Contusion of scalp, initial encounter; W01.10XA Fall on same level from slipping, tripping and stumbling with subsequent striking against unspecified object, initial encounter; Y93.9 Activity, unspecified; Y92.009 Unspecified place in unspecified non-institutional (private) residence as the place of occurrence of the external cause; Y99.9 Unspecified external cause status; I10 Essential (primary) hypertension; K21.9 Gastro-esophageal reflux disease without esophagitis

== ENCOUNTER 2016-06-11 05:46 | Inpatient (IN) | payer OTHER ==
[2016-06-11] VITALS (8 sets, daily range): BP systolic 129–465; BP diastolic 66–94
[~2016-06-11] VITALS: Ht 185.4 cm; Wt 123.3 kg
[~2016-06-11 05:46] MED LIST changes: +CIALIS2.5 MG; +TRAMADOL HCL50 MG PO
--- NOTE | 2016-06-11 11:15 | OPERATIVE REPORT ---
DATE OF SURGERY: 06/11/2016 SURGEON: Irving Ross III, MD ROD BENDING MACHINE OPERATOR: Valerio Le MD PREOPERATIVE DIAGNOSIS: 1. Bilobed stomach POSTOPERATIVE DIAGNOSIS: 1. Bilobed stomach PROCEDURES PERFORMED: 1. Laparoscopic stapled gastroplasty 2. Upper gastrointestinal endoscopy ANESTHESIA: General endotracheal. INDICATIONS: The patient is a 60-year-old male with history of carcinoid of the stomach who underwent stapled partial gastrectomy in 2015. Developed partitioning bilobed stomach secondary to the stapling and complaining of reflux. Upper GI series confirms the area of the bilobed stomach and a narrowing outlet, which could be attributing to his reflux symptomatology. SURGICAL FINDINGS: The patient was noted to have a bilobed stomach. Upper GI endoscopy, the septum between the upper and lower portion of the bilobed stomach had been , with good outlet. SURGICAL TECHNIQUE: The patient was brought to the operating room and placed in the dorsal supine position, where he underwent general endotracheal anesthesia by the anesthesiology department. After proper anesthesia had taken effect, a Sunshine catheter was placed to decompress the bladder, orogastric tube was placed to decompress the stomach. The patient was placed in low lithotomy position. His abdomen was prepped using Betadine and draped in a sterile fashion. A supraumbilical incision was made and carried down through skin and subcutaneous tissue. A Veress needle was inserted through this site, into the abdominal cavity, and after ascertaining its appropriate position with suction irrigation, a pneumoperitoneum was obtained using CO2 insufflation to approximately 14-15 mmHg pressure. Once this pressure was reached, the Veress needle was removed and replaced with a 10 mm trocar. The trocar was removed, leaving the sleeve behind, through which a laparoscopic video camera was introduced in the abdominal cavity. Under direct visualization, a separate 12 mm trocar was placed in the left mid abdomen, through a previous incisional scar. The trocar entered the abdominal cavity under direct visualization. The trocar was removed, leaving the sleeve behind. Under direct visualization, a self-retaining liver retractor was introduced through the subxiphoid incision and placed beneath the left lobe of the liver and retracted cephalad and secured using the upper hand. Two 10 mm trocars were placed in the subxiphoid region. Each entered the abdominal cavity under direct visualization, approximately 1 handbreadth apart. We were able to identify the bilobed stomach. The omentum was taken down using the Thunderbeat. We were able to approximate the upper half and the lower half of the bilobed stomach using seromuscular interrupted 0 Surgidac EndoStitch sutures with extracorporeal knot-tying technique. Gastrotomy of the upper and lower lobes were created using electrocautery. An Endo-COURTNEY stapler was introduced and the stapler fired, thus the septum between the upper and lower halves of the bilobed stomach. The gastroscope was introduced into the gastric lumen. One more load was fired to ensure that the septum was completely . The stapler fired. The gastrotomy was then closed with another load of the Endo-COURTNEY stapler. The residual stapled-off gastric remnant was sent to pathology. At this point, Dr. Le went above, passed an Olympus fiberoptic upper GI endoscope down the patient's posterior pharynx. The esophagus was entered under direct visualization. The scope passed into the gastric lumen, where a nice round, nonobstructing lumen was identified, and a retroflexed view showed no evidence of a bilobed stomach and that the septum had been completely . The stomach was insufflated, and the staple line was placed beneath a pool of normal saline, and no bubbles were appearing. The orogastric tube was then removed and replaced with a nasogastric tube, which was placed within the stomach and attached to suction, with the stomach decompression. The upper GI endoscope was withdrawn, hemostasis assured. The pneumoperitoneum was released. All trocars were removed from the abdominal cavity. It should be noted that prior to removal of the 12 trocar in the left upper abdomen, a fascial closure was attained using the puncture closure device of 2-0 Polysorb. The self-retaining liver retractor was removed from the abdominal cavity as well as all trocars. All trocar sites were then approximated using 4-0 subdermal Polysorb and Steri-Strips. A sterile pressure occlusive dressing was placed over the site. The patient tolerated the procedure well, was extubated and transferred to the recovery room in stable condition. There were no intraoperative or anesthetic complications.
[2016-06-12 03:33] VITALS: BP 131/83
[2016-06-12 06:56] VITALS: BP 143/85
--- NOTE | 2016-06-12 08:12 | DIAGNOSTIC IMAGING REPORT ---
PROCEDURE: XR ABDOMEN 1 VIEW INDICATION: S/P LAPROSCOPIC GASTROPLASTY TECHNIQUE: Single view upright abdomen. COMPARISON: Upper GI 02/28/2016 FINDINGS: A nasogastric tube is curled in the proximal stomach. Correlate with intended position. The bowel gas pattern is nonspecific. There is a paucity of small bowel gas and occasional air fluid levels in the hepatic flexure colon. No suspicious mass effect. The visible lung vickers appear relatively clear. Degenerative changes in the lumbar spine. IMPRESSION: 1. NG tube position in the proximal stomach. 2. Air-fluid levels in the right upper quadrant bowel loops suggestive of mild ileus. 3. Findings called to the floor.
[2016-06-12 10:38] VITALS: BP 149/93
[2016-06-12 21:23] VITALS: BP 149/86
[2016-06-13] VITALS (8 sets, daily range): BP systolic 146–168; BP diastolic 93–105
[2016-06-14] VITALS (7 sets, daily range): BP systolic 143–165; BP diastolic 92–101
--- NOTE | 2016-06-14 14:53 | DIAGNOSTIC IMAGING REPORT ---
PROCEDURE: XR UPPER GI WITH GASTROGRAFIN INDICATION: Postop gastroplasty for mid gastric stenosis. Prior gastric resection for carcinoid. TECHNIQUE: Double contrast study. 180 ml of gastrographin contrast material was injected through the patient's existing nasogastric tube. 26 fluoroscopic images (including cinefluoroscopy). Fluoroscopy time, 6.8 minutes; 4161.66 mGy. COMPARISON: Comparison is made to upper GI on 02/28/2016. FINDINGS: There has been moderate improvement in mid gastric stenosis with moderate residual narrowing. There is no evidence of obstruction or leak. There is free flow of contrast into the duodenum and small bowel. IMPRESSION: 1. Moderate improvement in mid gastric stenosis with moderate residual narrowing. 2. No evidence of leak. 3. Findings discussed with Dr. Ross.
[2016-06-15 05:07] VITALS: BP 151/87
[2016-06-15] MEDS ORDERED: HYCET1 ML PO (05:53)
--- NOTE | 2016-06-15 05:54 | Provider's Discharge Care Plan ---
Problem, Goal, Plan Problem List 1. S/P gastroplasty Goals: Improve function, Therapeutic intervention Instructions: Follow up as directed, Take meds as directed
--- NOTE | 2016-06-15 05:54 | Provider's Discharge Care Plan ---
Problem, Goal, Plan Problem List 1. S/P gastroplasty Goals: Improve function, Therapeutic intervention Instructions: Follow up as directed, Take meds as directed
--- NOTE | 2016-06-18 11:28 | DISCHARGE SUMMARY ---
ADMIT DATE: 06/11/2016 DISCHARGE DATE: 06/15/2016 ADMITTING DIAGNOSES: 1. Gastric stenosis 2. Bilobed stomach DISCHARGE DIAGNOSES: 1. Gastric stenosis 2. Bilobed stomach PROCEDURES PERFORMED: 1. Laparoscopic gastropexy 2. Upper gastrointestinal endoscopy ANESTHESIA: TIVA. BRIEF HISTORY: The patient is a 60-year-old male who is status post laparoscopic wedge resection of a portion of his stomach for carcinoid of the stomach. He subsequently has developed reflux-type symptoms, early satiety and epigastric abdominal discomfort. He was diagnosed with having a bilobed stomach and is being admitted for gastroplasty. HOSPITAL COURSE: The patient was admitted to [facility], taken to the operating room and underwent laparoscopic stapled gastroplasty of his stomach and EGD. Postoperative course was unremarkable. On postoperative day 2, he was ambulating , plus/minus flatus, O2 saturations 97% on 3 L. On hospital day #3, he underwent upper GI series using Gastrografin, which showed no evidence of outlet obstruction and marked improvement of the area of narrowing of the stomach and no leak. He was started on a clear liquid diet, which was advanced to a full liquid diet, and was discharged home on postoperative day #4. DISCHARGE INSTRUCTIONS/MEDICATIONS: Condition at time of discharge: Ambulating, voiding, having bowel movements, passing flatus, and tolerating a full liquid diet, with minimal abdominal pain. He was discharged on hydrochlorothiazide 25 mg daily. Metoprolol ER 50 mg daily. Losartan 50 mg daily. Atorvastatin 10 mg at bedtime. Synthroid 0.075 mg daily. Hycet elixir 1 tablespoon q.6 hours p.r.n. pain. He was instructed to follow up with [facility] in 1 week.
== END 2016-06-15 07:50 | disposition home or self-care (01) | DRG 392 ==
LOC: SCU SRH 05:46 → U SRH 07:30 → CC SRH 12:05
PROVIDERS: ADMIT Specialist
PROC: 0DJ68ZZ Inspection of Stomach, Via Natural or Artificial Opening Endoscopic (ICD-10-PCS; principal; 2016-06-11 07:30)
PROC: 0DB64ZZ Excision of Stomach, Percutaneous Endoscopic Approach (ICD-10-PCS; principal; 2016-06-11 07:30)
DX: K31.89 Other diseases of stomach and duodenum (principal); Z90.3 Acquired absence of stomach [part of]; Z85.020 Personal history of malignant carcinoid tumor of stomach; K21.9 Gastro-esophageal reflux disease without esophagitis; I10 Essential (primary) hypertension; E78.5 Hyperlipidemia, unspecified
CPT/HCPCS: 50002; 60001; 70002; 80102; 80212; 80248; 80298; 81144; 82284; 82669; 82672; 82794; 82897; 82943; 83197; 83526; 83587; 83920; 83982; 84038; 84322; 90047; 90074; 91672; 92132

== ENCOUNTER 2016-07-29 19:36 | Emergency (ER) | payer OTHER ==
--- NOTE | 2016-07-29 21:51 | DIAGNOSTIC IMAGING REPORT ---
PROCEDURE: XR ANKLE 3 OR 4 VIEWS - LEFT INDICATION: TRAUMA/INJURY TECHNIQUE: Four views of the left ankle. COMPARISON: None. FINDINGS: Normal mineralization. Tiny non corticated osseous fragment seen projecting anterior to the tibiotalar joint on the lateral view only. This could represent a small avulsion fracture although the bursitis uncertain. No other fractures. Ankle mortise intact. Normal osseous alignment. No tibiotalar joint effusion. No suspicious soft-tissue calcification or radiodense foreign bodies. Achilles tendon appears grossly normal. Slight lateral periarticular soft tissue swelling. IMPRESSION: 1. Questionable avulsion fracture projecting anterior to the ankle joint, donor site uncertain.
--- NOTE | 2016-07-29 22:09 | ED NURSING NOTES ---
Clinical Report - Nurses [facility] [address] [place] [address] 07/29/2016 19:36 Patient: MISAEL SAINI TRIAGE Triage time 19:45. Acuity: LEVEL 3. Chief Complaint: DIZZINESS (blurred vision Had 4-5 mixed drinks at golf game, when came home fell down x 2 between car and the house. .). Alert. No acute distress. --19:56 Ting Whitlock R.N. 19:45 07/29/16. BP: 103/65. HR: 93. RR: 20. O2 saturation: 96%. Temp: 98.4 F. Pain level now: 05/04. --19:56 Ting Whitlock R.N. 19:45 07/29/16. BP: 103/65. HR: 93. RR: 20. O2 saturation: 96%. Temp: 98.4 F. Pain level now: 05/04. --19:57 Ting Whitlock R.N. Weight: 115.2 kg stated. Height/Length: 73 inches Per Patient. BMI: 33.5. --19:54 Ting Whitlock R.N. Medications Atorvastatin Calcium Oral 20 mg, daily. BusPIRone HCl Oral 150mg, daily. Hydrochlorothiazide Oral 25 mg, daily. Lansoprazole Oral 30 mg, daily. --19:51 Ting Whitlock R.N. Medication/allergy information source: the patient. --19:56 Ting Whitlock R.N. Allergies No Known Drug Allergy. --19:51 Ting Whitlock R.N. History Arrived by private vehicle. Historian: patient and family. Primary physician ([facility]). This started today. Onset. ( found laying on the garage floor on back.). He has had weakness. Reports muscle aches. Treatment ROUGHER HELPER: None. PAST MEDICAL HX: Immunizations: up-to-date. SOCIAL HX: Smoker- current status unknown. Alcohol use; consumes four liquor. History of drug use: marijuana. Recently used drugs days ago. FALL RISK ASSESSMENT: Fall risk assessment completed. No fall risk identified. NUTRITIONAL RISK ASSESSMENT: The nutritional risk assessment revealed no deficiencies. FUNCTIONAL ASSESSMENT: Functional assessment: no impairments noted. LEARNING NEEDS ASSESSMENT: The learning needs assessment revealed no barriers. SKIN INTEGRITY ASSESSMENT: Skin integrity risk assessment completed. No skin integrity risk identified. --19:56 Ting Whitlock R.N. PROBLEMS: Concussion. Contusion. Fall. Hypertension. Hypercholesterolemia. Gastroesophageal Reflux Disease. --19:52 Ting Whitlock R.N. Diabetes Mellitus Type 2. --19:57 Ting Whitlock R.N. ADDITIONAL SURGERIES: ABD surgery . Ca of the stomach. Leg surgery . Shoulder Surgery. --19:52 Ting Whitlock R.N. Interventions ID band on patient. To room. --19:56 Ting Whitlock R.N. PHYSICAL ASSESSMENT To room via wheelchair. Patient gowned. GENERAL / NEURO / PSYCH: Alert. Oriented X 4. Appears in no acute distress. HEENT: Mucous membranes are pink. RESPIRATORY: Respirations not labored. Chest nontender. CVS: Normal sinus rhythm noted. Capillary refill less than 2 seconds. Pulses within normal limits. GI / : Abdomen nontender. SKIN: Skin intact. Skin is warm and dry. Normal skin turgor. --19:58 Ting Whitlock R.N. NURSING PROGRESS NOTES Patient gowned. Head of bed elevated. Two patient identifiers checked. Call light placed in reach. Side rails up x 2. Bed placed in lowest position. Brakes of bed on. Patient ready for evaluation. --19:58 Ting Whitlock R.N. Patient ready for evaluation- chart flagged. --19:58 Ting Whitlock R.N. EKG time: (1947). EKG was ordered, performed by a nurse and shown to the ED physician. --19:59 Ting Whitlock R.N. 19:49 07/29/2016 Site #1 started via IV in the right antecubital space with an 20g angiocath, with aseptic technique and good blood return; one attempt. Blood drawn: rainbow set. Labeled in the presence of the patient and sent to the lab. Saline lock flushed with 10 mL saline. --19:59 Ting Whitlock R.N. 20:10 07/29/2016 Started bag #1 1000 mL IV Fluids IV NS (Saline); at 1000 mL/hr over 1 hour(s) via site #1. Allergies verified and confirmed 5 rights. IV patency established. IV site checked: no pain, redness, or swelling. IV flushed thoroughly pre- and post-medication administration. --20:10 Ting Whitlock R.N. 22:25 07/29/2016 IV Fluids IV NS Discontinued: bag #1 completed upon discharge. Total amount infused: 1000 mL. IV patency established. IV site checked: no pain, redness, or swelling. IV flushed thoroughly. --00:53 Dimas Cox R.N. DISPOSITION / DISCHARGE 22:07/29/16. BP: 119/53 (regular adult cuff) taken on the left arm, via an automated monitor, while lying. HR: 94 (regular and normal rate). RR: 22 (regular, unlabored and normal). O2 saturation: 93% on room air. Temp: 98 F (oral). Pain level now: 01/01. --00:52 Dimas Cox R.N. 22:07/29/2016 Site #1 removed upon discharge. Catheter intact. Bandaid applied (Bleeding controlled.). --00:53 Dimas Cox R.N. 22:07/29/16. Departure time: 2224Jul 29 2016. Condition at departure: stable. The goals identified in the patient's plan of care were met. No learning barriers present. Discharge instructions provided and reviewed with the patient. Reviewed medication(s) side effects, precautions, dosing and course information. Prescription(s) given to the patient (Misael verbalizes importance of not driving and/or operating heavy machinery while taking narcotics. He verbalizes importance of abstaining from ETOH while taking narcotics. He verbalizes safe, proper use of prescribed pain meds for optimal pain management at home.). Activity restrictions (rest) reviewed. Patient verbalized understanding. Written instructions provided in Kiswahili. ( Misael verbalizes understanding of all d/c instructions including need to f/u with PCP. He has no questions and voices no concerns at this time. Per pt request, a copy of his labs has been sent home with him at d/c.). The patient was discharged by the physician. He was discharged home and accompanied by spouse. He left the Emergency Department ambulatory and via private vehicle. Spouse driving. [place] COMA SCORE: [place] Coma Scale: 15- eyes open spontaneously (4); best verbal response- oriented x 4 (5); best motor response- obeys commands (6). --00:52 Dimas Cox R.N. Locked/Released at 07/30/2016 0:53 by Dimas Cox R.N.
--- NOTE | 2016-07-29 22:09 | ED ORDER SUMMARY ---
..... Patient: LIVIA SAINI OrderSheet [facility] VisitID: [id number] [address] [place] [address] 60y, M Registration Date/Time: 07/29/2016 ORDER SHEET Weight: 115.2 kg (stated) Allergies: No Known Drug Allergy GENERAL ORDERS: EKG - ER Stat (19:47 07/29/2016 Lloyd Mariano) (19:53 HSoule) Ankle 3 or 4V Left Urgent (20:02 07/29/2016 Lloyd Mariano) (Ack 20:03 AMcQuoid ER Tech1) (20:14 AMcQuoid ER Tech1) CBC w Diff Urgent (20:02 07/29/2016 Lloyd Mariano) (Ack 20:03 AMcQuoid ER Tech1) (20:10 SRoberts R.N.) CMP Urgent (20:02 07/29/2016 Lloyd Mariano) (Ack 20:03 AMcQuoid ER Tech1) (20:10 SRoberts R.N.) UA-Culture if indicated Urgent (20:02 07/29/2016 Lloyd Mariano) (Ack 20:03 AMcQuoid ER Tech1) (21:57 AMcQuoid ER Tech1) MEDICATION ORDERS: IV FLUIDS: IV NS : initial bolus 1000 mL (1000 mL/hr), then none - for X1 (NOW) (20:02 07/29/2016 Lloyd Mariano) (20:10 SRoberts R.N.) ORDER SHEET NOTES: [Electronically signed by Dimas Cox R.N. (00:53 07/30/2016)] [Electronically signed by Ra Ignacio Dr. (12:22 07/31/2016)] [Electronically locked/signed by Dimas Cox R.N. (00:53 07/30/2016)]
--- NOTE | 2016-07-29 22:09 | ED ORDER SUMMARY ---
..... Patient: LIVIA SAINI OrderSheet [facility] VisitID: [id number] [address] [place] [address] 60y, M Registration Date/Time: 07/29/2016 ORDER SHEET Weight: 115.2 kg (stated) Allergies: No Known Drug Allergy GENERAL ORDERS: EKG - ER Stat (19:47 07/29/2016 Lloyd Mariano) (19:53 HSoule) Ankle 3 or 4V Left Urgent (20:02 07/29/2016 Lloyd Mariano) (Ack 20:03 AMcQuoid ER Tech1) (20:14 AMcQuoid ER Tech1) CBC w Diff Urgent (20:02 07/29/2016 Lloyd Mariano) (Ack 20:03 AMcQuoid ER Tech1) (20:10 SRoberts R.N.) CMP Urgent (20:02 07/29/2016 Lloyd Mariano) (Ack 20:03 AMcQuoid ER Tech1) (20:10 SRoberts R.N.) UA-Culture if indicated Urgent (20:02 07/29/2016 Lloyd Mariano) (Ack 20:03 AMcQuoid ER Tech1) (21:57 AMcQuoid ER Tech1) MEDICATION ORDERS: IV FLUIDS: IV NS : initial bolus 1000 mL (1000 mL/hr), then none - for X1 (NOW) (20:02 07/29/2016 Lloyd Mariano) (20:10 SRoberts R.N.) ORDER SHEET NOTES: [Electronically signed by Dimas Cox R.N. (00:53 07/30/2016)] [Electronically signed by Ra Ignacio Dr. (12:22 07/31/2016)] [Electronically locked/signed by Dimas Cox R.N. (00:53 07/30/2016)]
--- NOTE | 2016-07-29 22:09 | ED CLINICAL REPORT ---
Clinical Report - Physicians/Mid Levels [facility] [address] [place] [address] 07/29/2016 19:36 Patient: LIVIA SAINI Time Seen: 1955; initial patient contact. Arrived- By private vehicle. Historian- patient. HISTORY OF PRESENT ILLNESS Is no longer unconscious. He has recovered. Chief Complaint: NEAR-SYNCOPE. This occurred today. It was abrupt in onset and has been intermittent. Event was not witnessed. The patient felt faint and collapsed. The patient had preceding symptoms of light-headedness. The event occurred during light exertion (walking). The episode was brief and lasted seconds. Location of injuries- left ankle. Currently he feels normal. No nausea currently. No headache currently. (was out in the sun golfing today. reports having an alcoholic drink today prior to golfing.). Similar symptoms previously: None. Recent medical care: Not recently seen/assessed. REVIEW OF SYSTEMS No headache, dizziness, chest pain, abdominal pain or vomiting. No diarrhea, fever or skin rash. All systems otherwise negative, except as recorded above. PAST HISTORY See nurses notes. Medications: Atorvastatin Calcium Oral 20 mg, daily. BusPIRone HCl Oral 150mg, daily. Hydrochlorothiazide Oral 25 mg, daily. Lansoprazole Oral 30 mg, daily. Allergies: No Known Drug Allergy. SOCIAL HISTORY Never smoker. Occasional alcohol use. History of occasional drug use: marijuana. No recent travel. Is a local resident. ADDITIONAL NOTES The nursing notes have been reviewed. PHYSICAL EXAM Vital Signs: 07/29/2016 19:45 BP: 103/65. HR: 93. RR: 20. O2 saturation: 96%. Temp: 98.4 F. Pain level now: 2/10. Blood pressure normal. Oxygen saturation normal. Appearance: Alert. No acute distress. Eyes: Pupils equal, round and reactive to light. No nystagmus. Extraocular movements normal. ENT: Normal ENT inspection. TM's normal. Moist mucous membranes. Pharynx normal. Neck: Normal inspection. Neck supple. CVS: Normal heart rate and rhythm. Heart sounds normal. Pulses normal. Respiratory: No respiratory distress. Breath sounds normal. Abdomen: Soft and nontender. No organomegaly. Back: Normal inspection. No CVA tenderness. (no midline tenderness. No crepitus.). Skin: Skin warm and dry. Normal skin color. No rash. Normal skin turgor. Extremities: Extremities exhibit normal ROM. No lower extremity edema. (Patient with mild tenderness over the lateral malleolus. No overlying skin changes. No crepitus. Compartments are soft. Sensation intact in all toes. Capillary refill less than 3 seconds in all toes. No bony Abnormalities). Neuro: Alert. Oriented X 3. Mood/affect normal. Speech normal. Cranial nerves normal (as tested). No cerebellar findings. No motor deficit. No sensory deficit. Reflexes normal. LABS, X-RAYS, AND EKG EKG: No acute process. No acute ischemia. Normal EKG. Normal sinus rhythm. Rate: 99. Normal P waves. Normal MARITO. Normal QRS complex. Normal axis. Normal ST and T waves, QT and QTc. Lt Ankle X-ray: No fracture. Normal alignment. No bony lesion. Mild soft tissue swelling diffusely. Views: 3 view ankle series. The X-rays were independently viewed by me and interpreted by the radiologist. The X-rays were discussed with the radiologist (via PACS). Laboratory Tests: UA-Culture if indicated: (CELINE: 07/29/2016 21:50) ( [facility] 07/29/2016 21:56) IP Test Result Flag Units (Reference) URINE COLOR YELLOW URINE APPEARANCE CLEAR URINE GLUCOSE 3+ (NEGATIVE) URINE BILIRUBIN NEGATIVE (NEGATIVE) URINE KETONE NEGATIVE (NEGATIVE) URINE SPECIFIC GRAVITY 1.010 (1.010-1.030) URINE PH 6.0 (5.0-8.0) URINE PROTEIN TRACE (NEGATIVE) URINE UROBILINOGEN 0.2 EU/dL (0.2-1.0) URINE NITRITE NEGATIVE (NEGATIVE) URINE BLOOD NEGATIVE (NEGATIVE) URINE [place] ESTERASE NEGATIVE (NEGATIVE) CBC w Diff: (CELINE: 07/29/2016 19:51) ( [facility] 07/29/2016 20:20) Final results Test Result Flag Units (Reference) WHITE BLOOD COUNT 11.0 K/uL (4.5-11.5) RED BLOOD COUNT 4.31 L M/uL (4.50-5.90) HEMOGLOBIN 13.9 gm/dL (13.5-17.5) HEMATOCRIT 40.6 L % (41.0-53.0) MEAN CELL VOLUME 94 fL (80-100) MEAN CORPUSCULAR HGB 32 pg (26-34) MEAN CORPUSCULAR HGB CONC 34 g/dL (31-37) RED CELL DISTRIBUTION WIDTH 13.2 % (11.6-14.8) PLATELET COUNT 199 K/uL (150-400) NEUTROPHIL % 67.8 % (50-75) LYMPH % 17.4 L % (25-40) MONO % 13.7 % (3-14) EOSINOPHIL % 0.7 % (0-4) BASOPHIL % 0.4 % (0-2) CMP: (CELINE: 07/29/2016 19:51) ( MsgRcvd 07/29/2016 20:49) Final results Test Result Flag Units (Reference) GLUCOSE 392 H mg/dL (70-110) BUN 33 H mg/dL (7-18) CREATININE 2.7 H mg/dL (0.6-1.3) Estimated GFR 25.66 mL/min Estimated GFR- 31.10 mL/min Note: Persistent reduction over 3 months in eGFR<60 mL/min/1.73 m2 defines CKD. Patients with eGFR values>=60 mL/min/1.73 m2 may also have CKD if evidence ofpersistent proteinuria. Additional information may be foundat www.[email or web address].org. SODIUM 133 L mmol/L (136-145) POTASSIUM 3.8 mmol/L (3.5-5.1) CHLORIDE 95 L mmol/L (98-107) CARBON DIOXIDE 23 mmol/L (21-32) CALCIUM 8.5 mg/dL (8.5-10.1) TOTAL PROTEIN 7.7 g/dL (6.4-8.2) ALBUMIN 3.5 g/dL (3.3-5.0) BILIRUBIN, TOTAL 0.6 mg/dL (0.0-1.0) ALKALINE PHOSPHATASE 71 U/L (46-116) AST (SGOT) 35 U/L (15-37) ALT (SGPT) 92 H U/L (12-78) . PROGRESS AND PROCEDURES Course of Care: he patient is a pleasant 60-year-old male presenting for evaluation of syncopal episode. Patient states that he felt dizzy and collapsed. No loss of consciousness. Patient will be Evaluated with the [place] syncope roll. Patient is noted to be a diabetic and was noted to have elevated blood sugars wall at home today. patient is agreeable to treatment plan. Fluids have been ordered forlikely dehydration given the patient has been coughing all day outside in the sun. Patient's workup for [place] syncope roll is noted to be unremarkable. Patient with no findings and EKG. Rest patient's laboratory studies are unremarkable Except patient does have significant abnormalities with his blood glucose without any ketosis. Patient with uncontrolled diabetes. Patient also with kidney injury however appears to be chronic in nature given the fact that his diabetes has likely been significantly uncontrolled. Patient reports significant improvement with IV hydration here in the emergency department. Stressed to patient the need for follow-up in regards to his kidney function and diabetes. expressed to the patient my concern given the fact that his diabetes appears to have caused other concerns with his health including possible vision changes as well as diabetic neuropathy. Also would be concerned for increased risk of heart attacks in the future and explained to the patient my enjoyment of golf and wanting him to continue to enjoy golf as well. Was able to also speak to the in regards to his symptoms here in the emergency department and findings here on laboratory studies which are concerning. Encouraged to help patient in regards to obtaining tighter glycemic control. is also agreeable to this. ankle Also without any osseous abnormalities. Continues to be neurovascularly intact. Disposition: Discharged. Condition: good. CLINICAL IMPRESSION 07/29/2016 19:45 BP: 103/65. HR: 93. RR: 20. O2 saturation: 96%. Temp: 98.4 F. Pain level now: 2/10. Blood pressure normal. Oxygen saturation normal. Moderate volume depletion with dehydration and hypovolemia (acute). Poorly controlled type 2 diabetes with hyperglycemia. Sprain of the right ankle. acute kidney injury. INSTRUCTIONS Warnings: GENERAL WARNINGS: Return or contact your physician immediately if your condition worsens or changes unexpectedly, if not improving as expected, or if other problems arise. SPECIFICALLY, return if you develop fluttering sensation in your chest, lightheadedness, fainting, numbness, weakness or extreme fatigue. Your Current Medications: CONTINUE TAKING THE FOLLOWING MEDICATIONS: Atorvastatin Calcium Oral : 20 mg daily. BusPIRone HCl Oral : 150mg daily. Hydrochlorothiazide Oral : 25 mg daily. Lansoprazole Oral : 30 mg daily. Prescription Medications: [place] 5 mg / 325 mg tablets: take 1 orally every 6 hours as needed for pain. Dispense twelve (12). No refill. Substitution is permissible. Follow-up: Return to the emergency department as needed. Follow up with your doctor in three days. Reason for referral: recheck today's concerns. Screening today revealed the patient's blood pressure to be in the normal range. The patient should follow up with a primary care provider for blood pressure management. Understanding of the discharge instructions verbalized by patient. (Electronically signed by Ra Ignacio Dr. 07/31/2016 12:22)
--- NOTE | 2016-07-31 12:22 | ED MED RECONCILIATION SUMMARY ---
Patient: LIVIA SAINI Medication Reconciliation Report [facility] VisitID: [id number] [address] [place] [address] 60y, M Registration Date/Time: 07/29/2016 Weight: 115.2 kg Height/Length: 73 in. BMI: 33.5 ALLERGIES: No Known Drug Allergy The patient's Home Medications are listed below: CONTINUE TAKING THE FOLLOWING MEDICATIONS: Atorvastatin Calcium Oral 20 mg, daily BusPIRone HCl Oral 150mg, daily Hydrochlorothiazide Oral 25 mg, daily Lansoprazole Oral 30 mg, daily The source(s) of the original Home Medication information: patient The following Medications were given to the patient in the Emergency Department: IV NS IV Fluids bolus 0, then 1000 mL/hr, administered: 07/29/2016 8:10:00 PM The following Medications were prescribed to the patient: [place] 5 mg / 325 mg tablets: take 1 orally every 6 hours as needed for pain. Dispense twelve (12). No refill. Substitution is permissible. -- Ra Ignacio Dr.
--- NOTE | 2016-07-31 12:22 | ED MAR SUMMARY ---
..... Medication Administration Record [facility] [address] [place] [address] Patient: LIVIA SAINI Visit ID: [id number] 60y, M Weight: 115.2 kg Height/Length: 73 in BMI: 33.5 ALLERGIES: No Known Drug Allergy Start 20:10 07/29/2016 Ting Whitlock RRioNRio, Stop 22:25 07/29/2016 Dimas Cox R.N. Medication Administered: IV NS (SALINE), Dose: IV Fluids over 1 hour(s), Rate: 1000 mL/hr, Dispensed: 1000 mL bag, Site: #1 right AC. Medication Ordered: IV NS : initial bolus 1000 mL (1000 mL/hr), then none - for X1 (NOW).
--- NOTE | 2016-07-31 12:22 | ED MED RECONCILIATION SUMMARY ---
Patient: LIVIA SAINI Medication Reconciliation Report [facility] VisitID: [id number] [address] [place] [address] 60y, M Registration Date/Time: 07/29/2016 Weight: 115.2 kg Height/Length: 73 in. BMI: 33.5 ALLERGIES: No Known Drug Allergy The patient's Home Medications are listed below: CONTINUE TAKING THE FOLLOWING MEDICATIONS: Atorvastatin Calcium Oral 20 mg, daily BusPIRone HCl Oral 150mg, daily Hydrochlorothiazide Oral 25 mg, daily Lansoprazole Oral 30 mg, daily The source(s) of the original Home Medication information: patient The following Medications were given to the patient in the Emergency Department: IV NS IV Fluids bolus 0, then 1000 mL/hr, administered: 07/29/2016 8:10:00 PM The following Medications were prescribed to the patient: [place] 5 mg / 325 mg tablets: take 1 orally every 6 hours as needed for pain. Dispense twelve (12). No refill. Substitution is permissible. -- Ra Ignacio Dr.
--- NOTE | 2016-07-31 12:22 | ED DISCHARGE INSTRUCTIONS ---
Patient: LIVIA SAINI General Instructions [facility] VisitID: [id number] [place] [address] 60y, M Registration Date/Time: 07/29/2016 07/29/2016 19:45 BP: 103/65. HR: 93. RR: 20. O2 saturation: 96%. Temp: 98.4 F. Pain level now: 2/10. Blood pressure normal. Oxygen saturation normal. Moderate volume depletion with dehydration and hypovolemia (acute). Poorly controlled type 2 diabetes with hyperglycemia. Sprain of the right ankle. acute kidney injury. INSTRUCTIONS Warnings: GENERAL WARNINGS: Return or contact your physician immediately if your condition worsens or changes unexpectedly, if not improving as expected, or if other problems arise. SPECIFICALLY, return if you develop fluttering sensation in your chest, lightheadedness, fainting, numbness, weakness or extreme fatigue. Your Current Medications: CONTINUE TAKING THE FOLLOWING MEDICATIONS: Atorvastatin Calcium Oral : 20 mg daily. BusPIRone HCl Oral : 150mg daily. Hydrochlorothiazide Oral : 25 mg daily. Lansoprazole Oral : 30 mg daily. Prescription Medications: [place] 5 mg / 325 mg tablets: take 1 orally every 6 hours as needed for pain. Dispense twelve (12). No refill. Substitution is permissible. Follow-up: Return to the emergency department as needed. Follow up with your doctor in three days. Reason for referral: recheck today's concerns. Screening today revealed the patient's blood pressure to be in the normal range. The patient should follow up with a primary care provider for blood pressure management. Understanding of the discharge instructions verbalized by patient. ADDITIONAL INFORMATION Dehydration (Adult) Dehydration occurs when your body loses too much fluid. This may be the result of vomiting a lot or from diarrhea,sweating a lot, or a high fever. It may also happen if you dont drink enough fluid when youre sick. Misuse of diuretics (water pills) can also be a cause. Symptoms include thirst and feeling dizzy, weak, fatigued, or very drowsy. The diet described below is usually enough to treat most cases. Sometimes you may needmedicine. Home Care Follow these guidelines for home care: Drink at least 12 8-ounce glasses of fluid every day to overcome the dehydration. Fluid may include water; orange juice; lemonade; apple, grape, and cranberry juice; clear fruit drinks; electrolyte replacement and sports drinks; and teas and coffee without caffeine. If you have been diagnosed with a kidney disease, ask your doctor how much and what types of fluids you should drink to prevent dehydration. If you have kidney disease, drinking too much fluid can cause it build up in the your body and be dangerous to your health. If you have fever, muscle aching, or headache from a viral syndrome, you may useacetaminophen or ibuprofen, unless another medicine was prescribed for this.If you have chronic liver or kidney disease or ever had a stomach ulcer or GI bleeding, talk with your doctor before using these medicines. Don't take aspirin if you are younger than 18 and are ill with a fever.Aspirin raises the chance forsevere liver injury. Follow-up care Follow up with your health care provider if you don't get better in the next 24 to 48 hours. When to seek medical care Get prompt medical attention if any of theseoccur: Continued vomiting (cant keep liquids down) Frequent diarrhea (more than 5 times a day); blood (red or black color) or mucus in diarrhea Blood in vomit or stool Swollen abdomen or increasing abdominal pain Weakness, dizziness, or fainting Unusually drowsy or confused Reduced urine output or extreme thirst Fever of 100.4 F (38 C) oral or higher that does not get better with fever medication Diabetes with High Blood Sugar You have been treated for high blood sugar (hyperglycemia). This may be becauseof an infection or other illness;eating too many sweets or starches ; not taking enough insulin. Home care High blood sugar may cause symptoms that you can learn to recognize, such as these: If you feel like your blood sugar may be too high, measure it using a blood or urine test. If it is above your usual range, use the "sliding scale"rRegular insulin dose your doctor gave you to correct this. If no "sliding scale" orders were given, contact your doctor for further advice. If your blood sugar is over 300, and you can't reach your doctor, go to the hospital emergency room. Monitor and write down your blood sugars - and insulin dose, if you take insulin - atleast twice a day. Do this before breakfast and before dinner. Do this for the next 3 to 5 days. Follow-up care Follow up with your health care provderduring the next week to review your blood sugar records. You will find out if you need to adjust your dose of insulin or other medicine for blood sugar. When to seek medical care Get prompt medical attention if either of these occur: High blood sugar.Symptoms are frequent urination, feeling dizzy, thirst, headache, nausea or vomiting, abdominal pain, and drowsiness or loss of consciousness. Low blood sugar. Symptoms are fatigue, headache, shakes, excess sweating, hunger, anxiety, reduced vision, drowsiness, weakness, confusion or loss of consciousness, and seizure. Sprain, Ankle,With X-Ray A sprain is an injury to the ligaments or capsule that holds a joint together. There are no broken bones. Most sprains take from four to six weeks to heal. If the ligament is completely torn (severe sprain), it can take several months to recover. Mild to moderate sprains may be treated with an elastic wrap or an in-shoe splint to provide support and prevent re-injury. A mild sprain may not require any additional support. A severe sprain may require surgery to repair. Home care The following guidelines will help you care for your injury at home: Stay off the injured leg as much as possible until you can walk on it without pain. If you have a lot of pain with walking, crutches or a walker may be prescribed. (These can be rented or purchased at many pharmacies and surgical or orthopedic supply stores). Follow your doctor's advice regarding when to begin bearing weight on that leg. Keep your leg elevated to reduce pain and swelling. When sleeping, place a pillow under the injured leg. When sitting, support the injured leg so it is level with your waist. This is very important during the first 48 hours. Apply an ice pack (ice cubes in a plastic bag, wrapped in a towel) over the injured area for 20 minutes every 12 hours the first day. You can place the ice pack directly over the splint/cast. If you were given a boot, open it to apply the ice pack. Continue with ice packs 34 times a day for the next two days, then as needed for the relief of pain and swelling. You may use acetaminophen or ibuprofen to control pain, unless another pain medicine was prescribed. If you have chronic liver or kidney disease or ever had a stomach ulcer or GI bleeding, talk with your doctor before using these medicines. You may return to sports after healing, when you can run without pain. A sprained ankle is at risk for re-injury during the first six weeks. During that time, protect your ankle with an in-shoe splint that prevents tilting of your ankle from side to side. This is very important if you do active work or play sports during that time. Follow-up care Any X-rays you had today dont show any broken bones, breaks, or fractures. Sometimes fractures dont show up on the first X-ray. Bruises and sprains can sometimes hurt as much as a fracture. These injuries can take time to heal completely. If your symptoms dont improve or they get worse, talk with your doctor. You may need a repeat X-ray. When to seek medical care Get prompt medical attention if any of the following occur: The plaster cast or splint gets wet or soft The fiberglass cast or splint gets wet and does not dry for 24 hours Pain or swelling increases, or redness appears Toes become cold, blue, numb or tingly Re-injure your ankle Hydrocodone Bitartrate, Acetaminophen Oral tablet What is this medicine? ACETAMINOPHEN; HYDROCODONE (a set a TUSHAR jaime fen; guerita droe KOE done) is a pain reliever. It is used to treat mild to moderate pain. How should I use this medicine? Take this medicine by mouth. Swallow it with a full glass of water. Follow the directions on the prescription label. If the medicine upsets your stomach, take the medicine with food or milk. Do not take more than you are told to take. Talk to your patient service representative regarding the use of this medicine in children. This medicine is not approved for use in children. What side effects may I notice from receiving this medicine? Side effects that you should report to your doctor or health care management specialist as soon as possible: allergic reactions like skin rash, itching or hives, swelling of the face, lips, or tongue breathing problems confusion feeling faint or lightheaded, falls stomach pain yellowing of the eyes or skin Side effects that usually do not require medical attention (report to your doctor or health care management specialist if they continue or are bothersome): nausea, vomiting stomach upset What may interact with this medicine? alcohol antihistamines isoniazid medicines for depression, anxiety, or psychotic disturbances medicines for sleep muscle relaxants naltrexone narcotic medicines (opiates) for pain phenobarbital ritonavir tramadol What if I miss a dose? If you miss a dose, take it as soon as you can. If it is almost time for your next dose, take only that dose. Do not take double or extra doses. Where should I keep my medicine? Keep out of the reach of children. This medicine can be abused. Keep your medicine in a safe place to protect it from theft. Do not share this medicine with anyone. Selling or giving away this medicine is dangerous and against the law. Store at room temperature between 15 and 30 degrees C (59 and 86 degrees F). Protect from light. Keep container tightly closed. Throw away any unused medicine after the expiration date. Discard unused medicine and used packaging carefully. Pets and children can be harmed if they find used or lost packages. What should I tell my health care provider before I take this medicine? They need to know if you have any of these conditions: brain tumor Crohn's disease, inflammatory bowel disease, or ulcerative colitis drink more than 3 alcohol-containing drinks per day drug abuse or addiction head injury heart or circulation problems kidney disease or problems going to the bathroom liver disease lung disease, asthma, or breathing problems an unusual or allergic reaction to acetaminophen, hydrocodone, other opioid analgesics, other medicines, foods, dyes, or preservatives or trying to get breast-feeding What should I watch for while using this medicine? Tell your doctor or health care management specialist if your pain does not go away, if it gets worse, or if you have new or a different type of pain. You may develop tolerance to the medicine. Tolerance means that you will need a higher dose of the medicine for pain relief. Tolerance is normal and is expected if you take the medicine for a long time. Do not suddenly stop taking your medicine because you may develop a severe reaction. Your body becomes used to the medicine. This does NOT mean you are addicted. Addiction is a behavior related to getting and using a drug for a non-medical reason. If you have pain, you have a medical reason to take pain medicine. Your doctor will tell you how much medicine to take. If your doctor wants you to stop the medicine, the dose will be slowly lowered over time to avoid any side effects. You may get drowsy or dizzy when you first start taking the medicine or change doses. Do not drive, use machinery, or do anything that may be dangerous until you know how the medicine affects you. Stand or sit up slowly. There are different types of narcotic medicines (opiates) for pain. If you take more than one type at the same time, you may have more side effects. Give your health care provider a list of all medicines you use. Your doctor will tell you how much medicine to take. Do not take more medicine than directed. Call emergency for help if you have problems breathing. The medicine will cause constipation. Try to have a bowel movement at least every 2 to 3 days. If you do not have a bowel movement for 3 days, call your doctor or health care management specialist. Too much acetaminophen can be very dangerous. Do not take Tylenol (acetaminophen) or medicines that contain acetaminophen with this medicine. Many non-prescription medicines contain acetaminophen. Always read the labels carefully. You have been given the following additional information: Dehydration (Adult) Diabetic Hyperglycemia Sprain, Ankle, With X-Ray Hydrocodone Bitartrate, Acetaminophen Oral tablet (Electronically signed by Ra Ignacio Dr. 07/31/2016 12:22)
--- NOTE | 2016-07-31 12:22 | ED MAR SUMMARY ---
..... Medication Administration Record [facility] [address] [place] [address] Patient: LIVIA SAINI Visit ID: [id number] 60y, M Weight: 115.2 kg Height/Length: 73 in BMI: 33.5 ALLERGIES: No Known Drug Allergy Start 20:10 07/29/2016 Ting Whitlock RRioNRio, Stop 22:25 07/29/2016 Dimas Cox R.N. Medication Administered: IV NS (SALINE), Dose: IV Fluids over 1 hour(s), Rate: 1000 mL/hr, Dispensed: 1000 mL bag, Site: #1 right AC. Medication Ordered: IV NS : initial bolus 1000 mL (1000 mL/hr), then none - for X1 (NOW).
== END 2016-07-29 22:25 | disposition home or self-care (01) ==
LOC: ED SRH 19:36
DX: S93.401A Sprain of unspecified ligament of right ankle, initial encounter (principal); I10 Essential (primary) hypertension; W19.XXXA Unspecified fall, initial encounter; Y93.01 Activity, walking, marching and hiking; Y92.59 Other trade areas as the place of occurrence of the external cause; Y99.8 Other external cause status; N17.9 Acute kidney failure, unspecified; E11.65 Type 2 diabetes mellitus with hyperglycemia; E86.1 Hypovolemia; E86.0 Dehydration